=== PATIENT | female | born 1965 | race African-American/Black ===

== ENCOUNTER 2018-05-03 10:00 | Inpatient (IN) | payer OTHER ==
[2018-05-03] VITALS (14 sets, daily range): BP systolic 120–157; BP diastolic 74–99
[~2018-05-03] VITALS: Ht 170.2 cm; Wt 88.5 kg
--- NOTE | 2018-05-03 09:45 | Anethesia Preoperative Eval ---
Anesthesia Pre-op PMH/ROS General Date of Evaluation: May 03, 2018 Time of Evaluation: 11:06 Anesthesiologist: Dillon ASA Score: ASA 2 Mallampati Score Class I : Soft palate, uvula, fauces, pillars visible Class II: Soft palate, uvula, fauces visible Class III: Soft palate, base of uvula visible Class IV: Only hard plate visible Mallampati Classification: Class II Surgeon: Juliocesar Diagnosis: Back Pain Surgical Procedure: L4-5, L5-S1 Microdiscectomy, Decompression Anesthesia History: none Family History: no anesthesia problems Allergies: Coded Allergies: No Known Allergies (Unverified , 05/02/18) Medications: see eMAR Patient NPO?: Yes Past Medical History Cardiovascular: Reports: HTN Other: obesity - BMI 32 Anesthesia Pre-op Phys. Exam Physician Exam Vital Signs Date Time Temp Pulse Resp B/P (MAP) Pulse Ox O2 Delivery O2 Flow Rate FiO2 05/03/18 10:51 97.6 85 18 146/96 (113) 99 05/03/18 10:53 Room Air Constitutional: NAD Neurologic: CN 2-12 intact Cardiovascular: RRR Respiratory: CTA Gastrointestinal: S/NT/ND Airway Exam Mallampati Score: Class II MO: full ROM: full Teeth: intact Anesthesia Pre-op A/P Risk Assessment & Plan Assessment: ASA 2 Plan: GA, SED, GlideScope Go Status Change Before Surgery: No Pre-Antibiotics Dru Grams Ancef IV Given Within 1 Hr of Incision: Yes Time Given: 11:41 Frantz Carranza MD May 03, 2018 09:45
[~2018-05-03 10:00] MED LIST: Atropine Sulfate 0.4mg/ml inj IVP PRN; Dexamethasone 20mg/5ml IVP ONE; Dexamethasone 4mg/ml vial ONE; DiphenhydrAMINE 50mg/ml Inj IVP PRN; HYDROcodone/Acetamin 7.5/325 tab ORAL PRN; Hydromorphone 0.5mg/0.5ml inj IVP PRN; Ketorolac 30mg Inj IV PRN; LORazepam Inj 2mg/ml 1ml IV PRN; LR 1000ml 1,000 ML IVLG SCH; Lidocaine 1% MPF 10mg/ml 5ml ONE; Lidocaine 1% Plain 30 ml INJ ONE; Meperidine 50mg/ml Inj(FOR RIGORS ONLY) IVP PRN; Metoclopramide 10mg/2ml Inj IVP PRN; Midazolam 2mg/2ml Inj IVP PRN; NKM; Norco 5mg/325mg tab ORAL PRN; ceFAZolin sod 1 GM in NS 55 ML IVPB ONE; fentaNYL 100 mcg/2 mL IV PRN; oxyCODONE HCL/Acetaminophen 5/325mg ORAL PRN
[2018-05-03] MEDS ORDERED: Propofol 1,000mg/ 100ml btl IV ONE (10:01)
[2018-05-03] MEDS ORDERED: Acetaminophen (Non formulary) 100 ML IV SCH (10:30)
[2018-05-03] MEDS ORDERED: Thrombin 5000 units TOPIC ONE (10:35)
[2018-05-03] MEDS ORDERED: Bacitracin 50000 Units Vial ONE (10:36)
[2018-05-03] MEDS ORDERED: Gelfoam Size TOPIC ONE (10:36)
[2018-05-03] MEDS ORDERED: Lidocaine 1% Plain 30 ml INJ ONE (10:36)
[2018-05-03] MEDS ORDERED: Dexamethasone 20mg/5ml ONE (10:37)
[2018-05-03] MEDS ORDERED: LR 1000ml ONE (11:00)
[2018-05-03] MEDS ORDERED: Zemuron 50mg/5ml Inj IV ONE (11:00)
[2018-05-03] MEDS ORDERED: Glycopyrrolate 0.2mg/ml 1ml Vial ONE (11:00)
[2018-05-03] MEDS ORDERED: Neostigmine 1mg/ml 10ml Inj ONE (11:00)
[2018-05-03] MEDS ORDERED: NS Irrig 1000ml ONE (11:00)
[2018-05-03] MEDS ORDERED: Sterile Water Irrig 1000ml IRRIG ONE (11:00)
--- NOTE | 2018-05-03 12:17 | Immediate Post-Op Evaluation ---
Immediate Post-Op Evalulation Immediate Post-Op Evalulation Procedure: L4-5, L5-S1 Microdiscectomy, Decompression Date of Evaluation: May 03, 2018 Time of Evaluation: 14:44 IV Fluids: 1000 LR Blood Products: 0 Estimated Blood Loss: 30 Urinary Output: 0 Blood Pressure Systolic: 120 Blood Pressure Diastolic: 73 Pulse Rate: 70 Respiratory Rate: 16 O2 Sat by Pulse Oximetry: 100 Temperature (Fahrenheit): 98 Pain Score (1-10): 2 Nausea: No Vomiting: No Complications 0 Patient Status: awake, reacts, patent, extubated, none Hydration Status: adequate Dru Grams Ancef IV Given Within 1 Hr of Incision: Yes Time Given: 11:41 Frantz Carranza MD May 03, 2018 12:17
--- NOTE | 2018-05-03 12:18 | 48 Hour Post Anesthesia Eval ---
Post Anesthesia Evaluation Procedure: L4-5, L5-S1 Microdiscectomy, Decompression Date of Evaluation: May 03, 2018 Time of Evaluation: 16:57 Blood Pressure Systolic: 134 0: 87 Pulse Rate: 73 Respiratory Rate: 18 Temperature (Fahrenheit): 98.2 O2 Sat by Pulse Oximetry: 100 Airway: patent Nausea: No Vomiting: No Pain Intensity: 2 Hydration Status: adequate Cardiopulmonary Status: Stable Mental Status/LOC: patient returned to baseline Follow-up Care/Observations: 0 Post-Anesthesia Complications: 0 Follow-up care needed: ready to discharge Frantz Carranza MD May 03, 2018 12:18
--- NOTE | 2018-05-03 13:55 | Pre-Procedure Note/Attestation ---
Pre-Procedure Note/Attestation Complete Prior to Procedure Planned Procedure: right Procedure Narrative: L4-L5 microdiscectomy L5-S1 decompression Indications for Procedure Pre-Operative Diagnosis: Trauma HNP nerve root compression, radiculopathy Attestation I attest that I discussed the nature of the procedure; its benefits; risks and complications; and alternatives (and the risks and benefits of such alternatives ), prior to the procedure, with the patient (or the patient's legal pest control service representative). I attest that, if there was a reasonable possibility of needing a blood transfusion, the patient (or the patient's legal pest control service representative) was given the [facility] standardized written summary, pursuant to the [place] Blood Safety Act ([place] Health and Safety Code # 1645, as amended). I attest that I re-evaluated the patient just prior to the surgery and that there has been no change in the patient's H&P, except as documented below: Isiah Gandara MD May 03, 2018 13:55
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
[2018-05-03] MEDS ORDERED: Naloxone 0.4mg/ml Inj IVP PRN (14:00)
--- NOTE | 2018-05-03 14:40 | Diagnostic Imaging Report ---
INDICATION: Pain, intraoperative TECHNIQUE: Intraoperative imaging Fluoroscopy time: 3.4 seconds Total dose: 0.94719 mGym2 Total number of images: One COMPARISON: None FINDINGS: Intraoperative images demonstrate a surgical tool posterior to what is presumably the L5-S1 disc IMPRESSION: Intraoperative imaging, as described
--- NOTE | 2018-05-03 15:50 | NUR ---
NURSE NOTES: Pt is transferred to the floor via gurney. Pt is in the bed, on the RA. No s/s of respiratory distress nor discomfort noted. C/o mild pain, does not want medication at this point. Advised Pt to let nurse know if medication desired. Pt verbalized understanding. Bed is in the lowest position. Call light is within the reach. Will continue to monitor
[2018-05-03] MEDS ORDERED: Chloraseptic Spray 20mL Bottle ORAL ONE (16:06)
[2018-05-03] MEDS ORDERED: Chloraseptic Spray 20mL Bottle ORAL PRN (16:15)
[2018-05-03] MEDS ORDERED: oxyCODONE 5mg IR tab ORAL PRN ×2 (16:15)
[2018-05-03] MEDS ORDERED: Morphine Sulfate 4mg/ml Inj (IV/IM USE ONLY) IM PRN (16:15)
[2018-05-03] MEDS ORDERED: Morphine Sulfate 4mg/ml Inj (IV/IM USE ONLY) IM SCH (17:00)
[2018-05-03] MEDS: D5 1/2NS 1,000 ML IV SCH ×2 (17:52→21:57)
--- NOTE | 2018-05-03 20:45 | Operative Note - Dictated ---
DATE OF OPERATION: 05/03/2018 SURGEON: Isiah Gandara, Ph.D., M.D [employer]ERCIAL LINES MANAGER: ZARA Pryor. ANESTHESIOLOGIST: Frantz Carranza M.D. ANESTHESIA: General with intubation. ESTIMATED BLOOD LOSS: Less than 50 mL - minimal. SPECIMEN: Disc fragments to pathology. PREOPERATIVE DIAGNOSES: 1. L4-L5 lumbar herniated nucleus pulposus nerve root compression with radiculopathy - posttraumatic. 2. Posttraumatic nerve root compression at L5-S1. OPERATIVE PROCEDURE: 1. The patient's body habitus greater than 95th percentile for height increasing complexity of surgery. 2. Microdiskectomy L4-L5. 3. Harry laminotomies with decompression foraminotomies L5-S1. 4. Local anesthetic applied by surgeon. 5. SSEP monitoring. 6. High-powered microscopic dissection. 7. Intraoperative x-rays interpreted by surgeon. COMPLICATIONS: None. POSTOP CONDITION: Good/stable. PROCEDURE IN DETAIL: The patient was brought to the operating room and in the supine position, general anesthesia with intubation was induced. IV antibiotics, IV Decadron were administered 30 minutes prior to incision time. The patient was carefully turned and positioned in the prone position. Lumbodorsal spine was sterilely prepped. Under sterile conditions, a spinal needle was placed in the subcutaneous tissue only and a cross-table fluoroscopic image under sterile conditions was obtained demonstrating the correct level for incision placement. Level was marked. Needle removed. Back resterilely prepped and draped free in the usual sterile fashion. A longitudinal midline incision was sharply placed over the appropriate intervals through dermis and epidermis. Electrocautery dissection was carried through extensive subcutaneous tissue to the level of the lumbodorsal fascia. Subperiosteal elevation of paraspinal muscles right at midline was undertaken over the respective lamina of L4-L5 and superior S1. Marker was placed. Cross-table imaging obtained under sterile conditions interpreted by surgeons demonstrating the correct level for the dissection. Level marked. Marker removed. A specialized utilization of retractors utilized for exposure. L4-L5: Harry laminotomy inferior L4 was undertaken after the pars articularis identified. Ligamentum flavum excised under high-power magnification with dissection carried lateral to the nerve root sleeve dural tube to the level of the disc space. Bipolar electrocauterization utilized minimally for epidural vessels. Annulotomy followed microdiscectomy not exceeding 11 mm in the posterior anterior dimension, medial lateral, or lateral medial dimension. Subligamentous HNP identified. After the microdiscectomy, the interval was irrigated with antibiotic-containing saline. No further fragments identified. Gentle probing revealed no further compression on the nerve root or dural tube. SSEP monitoring stable. FloSeal applied. Attention was turned to the L5-S1 interval. Right in the laminotomy, inferior L5 superior S1 was performed with dorsal foraminotomy. SSEP monitoring stable. No dural tears or leaks noted anytime during the procedure. Wound irrigated copiously with antibiotic-containing saline. FloSeal applied. Sequential reapproximation of the lumbodorsal fascia, subcutaneous tissue in multiple layers dermis and epidermis subcuticularly following with staple sutures. Local anesthetic 1% lidocaine without epinephrine applied at the dermal/subcutaneous interval bilateral lateral aspects of the incision as local anesthetic. Sterile bandage applied maintained in place with tape. The patient was carefully turned from the prone to the supine position on the transport bed where she was awakened, extubated in the operating room, and transported to postop recovery in good stable condition. Isiah Gandara M.D. DR: LEYDA JOB#: [id number] CC:
[2018-05-03] MEDS: ceFAZolin sod 1 GM in D5W 55 ML IV SCH (21:47)
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
[2018-05-04] VITALS: BP 151/95
[2018-05-04] MEDS: ceFAZolin sod 1 GM in D5W 55 ML IV SCH ×2 (03:30→11:46)
[2018-05-04 04:00] VITALS: BP 128/79
--- NOTE | 2018-05-04 07:25 | NUR ---
HAND-OFF: Report given to GOMEZ Ramsey.
--- NOTE | 2018-05-04 07:47 | NUR ---
NURSE NOTES: Received report from BUD Kuo. Pt in bed, awake, talkative, A/O x4, eating breakfast, no apparent distress noted, call light within reach, bed in lowest position.
[2018-05-04 08:00] VITALS: BP 133/79
--- NOTE | 2018-05-04 08:15 | Progress Note ---
DATE: 05/04/2018 ACUTE PAIN MANAGEMENT PHYSICIAN PROGRESS NOTE MEDICATIONS: Medication administration record reviewed. Medications include IV fluids, Pepcid, Ancef, Narcan, Benadryl, Chloraseptic spray, Fioricet, Soma, Catapres, Mylanta, Zofran, Phenergan, morphine, and oxycodone. LABORATORY STUDIES: No interval laboratory studies. OBJECTIVE: VITAL SIGNS: Afebrile, pulse 92, respirations 18, blood pressure 128/79, and oxygen saturation 100% on room air. I spent over 60 minutes in consultation today. I saw the patient at the bedside after discussion with the overnight nurse RN, Desiree. The patient has been doing quite well. She has been responding very well to the intramuscular morphine, which I will continue q.3 hours p.r.n. The patient did state that after her section procedure many years ago, she did tolerate oxycodone and Percocet without problems. I did leave a prescription for Percocet for outpatient usage and will work-in oral oxycodone as tolerated throughout the day with meals. A prescription for 60 tablets of Percocet 10 mg was provided for outpatient usage. The patient denies shortness of breath or chest pain. She is neurologically intact and has been moving in and out of bed to the restroom while voiding urine well. Her daughter works during the daytime and should be able to crab picker the patient at the end of her work later this afternoon and take the patient home. The patient will stay with her daughter, who will assist with activities of daily living. The patient is using her incentive spirometer and is tolerating advancing diet without nausea. We will trial her on regular diet this morning. The patient does have plenty of stairs at home and I will ask the physical therapist to teach the patient with stairs-training later this morning. Lamont Shore M.D. DR: KEVIN JOB#: [id number] CC:
--- NOTE | 2018-05-04 08:42 | 48 Hour Post Anesthesia Eval ---
Post Anesthesia Evaluation Procedure: L4-5, L5-S1 Microdiscectomy, Decompression Date of Evaluation: May 04, 2018 Time of Evaluation: 08:41 Blood Pressure Systolic: 132 0: 64 Pulse Rate: 72 Respiratory Rate: 20 Temperature (Fahrenheit): 97.6 O2 Sat by Pulse Oximetry: 98 Airway: patent Nausea: No Vomiting: No Pain Intensity: 2 Hydration Status: adequate Cardiopulmonary Status: stable Mental Status/LOC: patient returned to baseline Follow-up Care/Observations: n/a Post-Anesthesia Complications: none Follow-up care needed: N/A Dannie Roy MD May 04, 2018 08:42
--- NOTE | 2018-05-04 11:50 | NUR ---
P.T Note: P.T evaluation completed and treatment initiated per spinal protocol. Please refer to P.T evaluation for current functional status. Skilled P.T service is ensure safety and compliance with spinal precautions in performing functional mobilities. Thank you for this referral.
[2018-05-04 12:00] VITALS: BP 149/89
[2018-05-04 16:00] VITALS: BP 126/72
--- NOTE | 2018-05-04 19:15 | NUR ---
NURSE NOTES: Pt discharged home with sister Aurelio. Pt was awake alert and ambulatory when left the unit. Pt had a prescription and a raised toilet seat was provided at the time of discharge. Pt was accompanied downstairs by RN.Patient was picked up by Aurelio in a private car. IV cath and ID band was removed. Pt had all belongings with her.
--- NOTE | 2018-05-04 19:23 | NUR ---
HAND-OFF: Report given to BUD Turner.
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
== END 2018-05-04 19:41 | disposition home or self-care (01) | DRG 520 ==
LOC: SUR 10:00 → 3E 16:00
DX: M51.16 Intervertebral disc disorders with radiculopathy, lumbar region (principal); G54.4 Lumbosacral root disorders, not elsewhere classified; I10 Essential (primary) hypertension; E66.9 Obesity, unspecified; Z68.32 Body mass index [BMI] 32.0-32.9, adult; V89.2XXS Person injured in unspecified motor-vehicle accident, traffic, sequela
CPT/HCPCS: 72020; 76000; J2405; J2710